=== PATIENT | male | born 1940 | race Caucasian/White ===

== ENCOUNTER 2018-09-27 05:24 | Inpatient (IN) | payer MEDICARE, BC ==
[2018-09-26 15:57] VITALS: BMI 28.7
[2018-09-27] VITALS (29 sets, daily range): BP systolic 18–133; BP diastolic 51–80; PULSE 79–97; RESP 9–94; Ht 179.1 cm; Wt 89.3 kg
[~2018-09-27] VITALS: Ht 179.1 cm; Wt 89.3 kg
--- NOTE | 2018-09-27 05:21 | HPN ---
Date/Time of Note Date/Time of Note DATE: 09/27/18 TIME: 05:21 Interval H&P Admission Note Pt. seen H&P reviewed: No system changes DELTA CONTRERAS MD September 27, 2018 05:21
--- NOTE | 2018-09-27 05:23 | OPR ---
Date/Time of Note Date/Time of Note DATE: 09/27/18 TIME: 05:21 Operative Report Procedure Date: September 27, 2018 Preoperative Diagnosis Right hip primary arthritis Postoperative Diagnosis Right hip primary arthritis Operation/Procedure Performed 1. Right total hip arthroplasty 2. Right hip injection of PRP solution Surgeon see signature line Change Director [employer] PA-C Anesthesia Type: general Estimated Blood Loss: 150 - 200 ml's Transfusion none Specimen None Grafts/Implants See operative note Complications none Pt Condition Post Procedure: stable Disposition: PACU Procedure Description [employer] PRODUCT MANAGER SURGEON:[facility] PA-C was integral to the positioning and assistance necessary in the exposure of the hip joint as well as protection of the neurovascular structures. In my opinion at the assistance offered by a surgical corsetier is insufficient and Elijahnate should be compensated for his time. PROCEDURE IN DETAIL: Following the administration of general endotracheal anesthesia supplemented with a spinal anesthetic, the patient was placed in the supine position. The antecubital fossa on the right was prepped and 60 cc of blood were aspirated. Under sterile conditions, the blood was passed off to the senior outside sales representative from the company who prepared the PRP solution. The right lower extremity was then prepped and draped in the usual sterile fashion. A pomologist radiograph was obtained for preliminary limb length and femoral size as well as acetabular size. A lateral incision was then made exposing the tensor fascia the fascia was incised the tensor was retracted laterally and the vessels were cauterized. The anterior capsule was then identified and prepared. A capsulectomy was then performed and the femoral head was then evaluated. Severe arthritic changes were noted. A femoral head cut was then made in the appropriate degree of version and inclination. Following dislocation, severe arthritic changes were noted with very certain severe cystic changes in the femoral head. The acetabulum was then exposed and a capsulectomy and labrectomy were completed. The central portion was then entered and serially reamed up to the 55 mm size. A Depuy [place] cup which was 56 mm, with a standard liner was then fit into position with solid fixation. A 30 mm screw was used for additional fixation. Attention was then directed to the femur, the femur was exposed and prepared. The canal was entered and serially reamed up to the size 5. The femoral canal was then thoroughly irrigated and the PRP solution was then instilled into the femoral canal. A size 5 Depuy [employer] standard offset stem was then inserted with solid fixation. A 32 mm, +1.5 mm femoral head, which was ceramic was then inserted. The leg was taken through full range of motion with no evident instability. In addition, radiographs revealed excellent position with reproduction of the limb lengths within a millimeter. The wound was irrigated thoroughly. The wound was then closed in layers and a Prenio for the final cover. This was watertight. Estimated blood loss was procedure was 200 cc. Postoperative radiographs will be obtained in the recovery room. DELTA CONTRERAS MD September 27, 2018 05:23
[2018-09-27] MEDS ORDERED: DEXAMETHASONE 1 MG TAB PO ONE (05:30)
[2018-09-27] MEDS ORDERED: TRANEXAMIC ACID 1GM/100ML(PMX) 100 ML IVPB ONE (05:30)
[2018-09-27] MEDS ORDERED: GABAPENTIN 300 MG CAP PO ONE (05:30)
[2018-09-27] MEDS ORDERED: CEFAZOLIN 2 GM/50 ML (PMX) 50 ML IVPB ONE (05:30)
--- NOTE | 2018-09-27 06:47 | PREAC ---
Date/Time of Note Date/Time of Note DATE: 09/27/18 TIME: 06:46 Anesthesia Eval and Record Evaluation Time Pre-Procedure Interview DATE: 09/27/18 TIME: 06:46 Age 78 Sex male NPO: 8 hrs Preoperative diagnosis right hip osteoarthritis Planned procedure right anterior total hip replacement Past Medical History Past Medical History: Includes Cardio: HTN, Dyslipidemia Surgery & Anesthesia Issues No known issue Meds Anticoagulation: No Beta Asim within 24 hr: Yes Reason Beta Asim not given: Bradycarida, Hypotension Current Medications Sodium Chloride/ Tranexamic Acid INTRA-OP ONCE IRR ; Start 09/27/18 at 07:00; Stop 09/27/18 at 07:01 Bupivacaine HCl/ Morphine Sulfate/ Epinephrine/ Ketorolac Tromethamine/ Sodium Chloride/ Vancomycin HCl/ Clonidine INTRA-OP IRR ; Start 09/27/18 at 07:00; Stop 09/27/18 at 09:30 Meds reviewed: Yes Allergies Coded Allergies: moxifloxacin (Verified Allergy, Mild, DIZZY, FAINTS, 09/26/18) Allergies Reviewed: Yes Labs/Studies Labs Reviewed: Reviewed by anesthesiologist test: N/A Pre-procedure Exam Airway: Adequate mouth opening, Adequate thyromental dist Mallampati: Mallampati II Teeth: Normal Lung: Normal Heart: Normal ASA Physical Status ASA physical status: 2 Emergency: None Planned Anesthetic General/MAC: ETT (vs. ), LMA Neuraxial: Spinal Planned Pain Management Sub-arachniod narcotics, Parenteral pain med Pre-operative Attestations Prior to commencing anesthesia and surgery, the patient was re-evaluated, there was verification of: *The patient's identity *The results of appropriate recent lab work and preoperative vital signs *The above evaluation not changing prior to induction *Anesthetic plan, risk benefits, alternative and complications discussed with patient/family; questions answered; patient/family understands, accepts and wishes to proceed. LUPE DAMON MD September 27, 2018 06:47
[2018-09-27] MEDS ORDERED: PROPOFOL 20 ML ONE (06:55)
[2018-09-27] MEDS ORDERED: LIDOCAINE 2% (SDV) 5 ML INJ ONE (06:55)
[2018-09-27] MEDS ORDERED: ATOR20TA38 PO (06:56)
[2018-09-27] MEDS ORDERED: GLUC100015 PO (06:56)
[2018-09-27] MEDS ORDERED: METO-335 PO (06:56)
[2018-09-27] MEDS ORDERED: UBID50TA PO (06:56)
[2018-09-27] MEDS ORDERED: AMLO-147 PO (06:56)
[2018-09-27] MEDS ORDERED: ASPI-903 PO (06:56)
[2018-09-27] MEDS ORDERED: IRBE150T21 PO (06:56)
[2018-09-27] MEDS ORDERED: FENTAnyl 50 MCG/ML VIAL ONE (06:58)
[2018-09-27] MEDS ORDERED: BUPIVACAINE 0.5% (SDV) 30 ML, morphine SULFATE (PF) 8 MG, EPINEPHrine 0.3 MG, KETOROLAC... IRR SCH ×7 (07:00)
[2018-09-27] MEDS ORDERED: SOD CHLORIDE 0.9% 100 ML, TRANEXAMIC ACID 3,000 MG IRR ONE ×2 (07:00)
[2018-09-27] MEDS ORDERED: SEVOFLURANE 15 MIN ONE (07:00)
[2018-09-27] MEDS ORDERED: CEFAZOLIN 1 GM INJ ONE (07:08)
[2018-09-27] MEDS ORDERED: DEXAMETHASONE 4 MG/ML 5 ML INJ ONE (07:08)
[2018-09-27] MEDS ORDERED: FAMOTIDINE 20 MG INJ ONE (07:08)
[2018-09-27] MEDS ORDERED: ONDANSETRON 4 MG INJ ONE (07:08)
[2018-09-27] MEDS ORDERED: TRANEXAMIC ACID 1GM/100ML(PMX) 100 ML ONE (07:13)
[2018-09-27] MEDS ORDERED: THROMBIN 20,000 UNIT VIAL ONE (07:13)
[2018-09-27] MEDS ORDERED: CA CHLORIDE 10% 10 ML SYRINGE ONE (07:14)
[2018-09-27] MEDS ORDERED: EPHEDrine 25 MG/5 ML SYG ONE ×2 (07:37→08:34)
[2018-09-27] MEDS ORDERED: POLYMYXIN/BACITRACIN 1L IRRIG IRR ONE (07:40)
[2018-09-27] MEDS ORDERED: NACL 0.9% 3 ML SYG IV SCH (08:30)
[2018-09-27] MEDS ORDERED: oxyCODONE 5 MG TAB PO PRN ×2 (08:30)
[2018-09-27] MEDS ORDERED: MAGNESIUM HYDROXIDE 30ML CUP PO PRN (08:30)
[2018-09-27] MEDS ORDERED: HYDROmorphONE 1 MG/ML SYG IV PRN (08:30)
[2018-09-27] MEDS ORDERED: DIPHENHYDRAMINE 50 MG INJ IV PRN ×2 (08:30→09:00)
[2018-09-27] MEDS ORDERED: ZOLPIDEM 5 MG TAB PO PRN (08:30)
[2018-09-27] MEDS ORDERED: ONDANSETRON 4 MG INJ IV PRN ×2 (08:30→09:00)
--- NOTE | 2018-09-27 08:54 | PAC ---
Date/Time of Note Date/Time of Note DATE: 09/27/18 TIME: 08:53 Post-Anesthesia Notes Post-Anesthesia Note Last documented vital signs Vital Signs Date Temp Pulse Resp B/P (MAP) Pulse Ox O2 O2 Flow FiO2 Time Delivery Rate 09/27/18 98.0 07:35 09/27/18 82 18 123/80 98 06:50 (94) Activity: WNL Respiratory function: WNL Cardiovascular function: WNL Mental status: Baseline Pain reasonably controlled: Yes Hydration appropriate: Yes Nausea/Vomiting absent: Yes Comments Bp: 129/67 HR: 68 RR: 15 T: 98 SaO2: 97% LUPE DAMON MD September 27, 2018 08:54
--- NOTE | 2018-09-27 08:55 | PDOCDIS ---
Discharge Instructions DIAGNOSIS Discharge Diagnosis Primary hip arthritis CONDITION [id number] Patient Condition: [id number] Good HOME CARE INSTRUCTIONS: [id number] Diet Instructions: [id number] Regular ACTIVITY: [id number] Activity Restrictions: [id number] Slowly Increase Activity Keep Limb Elevated [id number] Bathing Restrictions: Afzcy4m Shower FOLLOW UP/APPOINTMENTS Follow-up Plan 2 weeks in the office SCHOOL/WORK RELEASE May return to School/Work with: With Restrictions School/Work Release Comment: No hip extension for 6 weeks DELTA CONTRERAS MD September 27, 2018 08:55
[2018-09-27] MEDS ORDERED: FENTAnyl 50 MCG/ML VIAL IV PRN (09:00)
[2018-09-27] MEDS ORDERED: EPHEDrine 25 MG/5 ML SYG IV PRN (09:00)
[2018-09-27] MEDS: AMLODIPINE 10 MG TAB PO SCH (09:00)
[2018-09-27] MEDS ORDERED: MEPERIDINE 25 MG INJ IV PRN (09:00)
[2018-09-27] MEDS ORDERED: PROCHLORPERAZINE 10 MG INJ IV PRN (09:00)
[2018-09-27] MEDS ORDERED: HYDROmorphONE 1 MG/5 ML IV SYRINGE IV PRN ×3 (09:00)
[2018-09-27] MEDS: LACTATED RINGER'S 1,000 ML IV SCH ×3 (09:10→23:46)
[2018-09-27] MEDS: CEFAZOLIN 1 GM/50 ML (PMX) 50 ML IVPB SCH ×3 (09:11→23:45)
[2018-09-27] MEDS: METOPROLOL (XL) 25 MG TAB PO SCH (11:01)
[2018-09-27] MEDS: ACETAMINOPHEN 1000MG/100ML IV 100 ML IVPB SCH ×3 (11:02→23:45)
[2018-09-27] MEDS: DEXAMETHASONE 2 MG TAB PO SCH ×3 (12:57→23:46)
[2018-09-27] MEDS: oxyCODONE 5 MG TAB PO PRN (13:03)
[2018-09-27] MEDS: SENNA/DOCUSATE NA (8.6MG/50MG) TAB PO SCH (20:33)
[2018-09-27] MEDS ORDERED: ATORVASTATIN 20 MG TAB PO SCH (21:00)
[2018-09-27] MEDS ORDERED: GABAPENTIN 300 MG CAP PO SCH (21:00)
[2018-09-28 01:44] VITALS: BP 99/57; PULSE 79; RESP 18
[2018-09-28] MEDS: LACTATED RINGER'S 1,000 ML IV SCH (04:27)
[2018-09-28] MEDS: DEXAMETHASONE 2 MG TAB PO SCH (05:10)
--- NOTE | 2018-09-28 05:48 | PN ---
Date/Time of Note Date/Time of Note DATE: 09/28/18 TIME: 05:48 Subjective Awake and alert with minimal complaints Objective Vitals Vital Signs Date Temp Pulse Resp B/P (MAP) Pulse Ox O2 O2 Flow FiO2 Time Delivery Rate 09/28/18 97.9 79 18 99/57 (71) 95 Nasal 01:44 Cannula 09/27/18 2.0 11:30 Intake and Output 09/27/18 09/27/18 09/28/18 1515:00 23:00 07:00 IntakeIntake Total 2100 ml 1000 ml 750 ml OutputOutput Total 300 ml 900 ml BalanceBalance 1800 ml 1000 ml -150 ml Wound clean and dry. Neurologically intact. No signs of DVT. Results Result Diagram: 09/27/18 09 Medications Medications Current Medications Amlodipine Besylate (Norvasc) 10 mg DAILY PO ; Start 09/27/18 at 09:00 Atorvastatin Calcium (Lipitor) 20 mg QHS PO Last administered on 09/27/18at 20:32; Admin Dose 20 MG; Start 09/27/18 at 21:00 Metoprolol Succinate (Toprol Xl) 25 mg DAILY PO ; Start 09/27/18 at 09:00 Losartan Potassium (Cozaar) 50 mg DAILY PO ; Start 09/28/18 at 09:00 Lactated Ringer's 1,000 ml @ 100 mls/hr Q10H IV Last administered on 09/27/18at 23:46; Admin Dose 100 MLS/HR; Start 09/27/18 at 08:27 Senna/Docusate Sodium (Senokot-S) 1 tab BID PO Last administered on 09/27/18at 20:33; Admin Dose 1 TAB; Start 09/27/18 at 21:00 Simethicone (Mylicon) 80 mg TID PRN PO .GAS; Start 09/27/18 at 08:30 Magnesium Hydroxide (Milk Of Mag) 30 ml BID PRN PO .CONSTIPATION; Start 09/27/18 at 08:30 Magnesium Hydroxide (Milk Of Mag) 30 ml HS PO ; Start 09/29/18 at 21:00 Dexamethasone (Decadron) 2 mg Q6 PO Last administered on 09/28/18at 05:10; Admin Dose 2 MG; Start 09/27/18 at 12:00; Stop 09/28/18 at 06:01 Gabapentin (Neurontin) 300 mg HS PO Last administered on 09/27/18at 20:33; Admin Dose 300 MG; Start 09/27/18 at 21:00 Oxycodone HCl (Roxicodone) 15 mg Q4H PRN PO .PAIN; Start 09/27/18 at 08:30 Oxycodone HCl (Roxicodone) 10 mg Q4H PRN PO .PAIN; Start 09/27/18 at 08:30 Oxycodone HCl (Roxicodone) 5 mg Q4H PRN PO .PAIN Last administered on 09/27/18at 13:03; Admin Dose 5 MG; Start 09/27/18 at 08:30 Hydromorphone HCl (Dilaudid) 1 mg Q4H PRN IV .BREAKTHROUGH PAIN; Start 09/27/18 at 08:30 Ondansetron HCl (Zofran Inj) 4 mg Q6H PRN IV NAUSEA/VOMITING; Start 09/27/18 at 08:30 Diphenhydramine HCl (Benadryl) 25 mg Q6H PRN IV .PRURITUS; Start 09/27/18 at 08:30 Zolpidem Tartrate (Ambien) 10 mg HS PRN PO .INSOMNIA; Start 09/27/18 at 08:30 IV Flush (NS 3 ml) 3 ml per protocol IV ; Start 09/27/18 at 08:30 Aspirin (Ecotrin) 325 mg DAILY PO ; Start 09/28/18 at 09:00 VTE Prophylaxis Risk score (from Nsg)>0 risk: 6 SCD applied (from Nsg): Yes Lines/Catheters IV Catheter Type: Saline Lock Barrett in Place: No Assessment/Plan Assessment/Plan Assessment: Status post total hip replacement Plan: Begin PT this morning discharge after clearance DELTA CONTRERAS MD September 28, 2018 05:48
--- NOTE | 2018-09-28 05:49 | DS ---
Date/Time of Note Date/Time of Note DATE: 09/28/18 TIME: 05:48 Discharge Summary Admission/Discharge Info Admit Date/Time September 27, 2018 at 05:24 Discharge Date/Time 09/28/2018 Discharge Diagnosis Primary hip arthritis Patient Condition: Good Hospital Course Admitted and underwent uncomplicated procedure. Postop day 1 afebrile independently ambulatory discharged home Home Meds Reported Medications Glucosamine Sulfate 2KCL (GLUCOSAMINE) 1,000 Mg Tablet, 1500 MG PO DAILY, TAB 09/27/18 Aspirin* (Aspirin* Chew) 81 Mg Tab.chew, 81 MG PO DAILY, TAB.CHEW 09/27/18 Ubidecarenone (COQ10) 50 Mg Tab.chew, 100 MG PO DAILY, TAB.CHEW 09/27/18 Irbesartan* (Irbesartan*) 150 Mg Tablet, 150 MG PO DAILY, TAB 09/27/18 Atorvastatin Calcium* (Atorvastatin Calcium*) 20 Mg Tablet, 20 MG PO QHS, #30 TAB 09/27/18 Metoprolol Succinate* (Toprol XL*) 25 Mg Tab.sr.24h, 25 MG PO DAILY, #30 TAB 09/27/18 Amlodipine Besylate* (Amlodipine Besylate*) 10 Mg Tablet, 10 MG PO DAILY, #30 TAB 09/27/18 Follow-up Plan 2 weeks in the office Primary Care Provider Not On Staff Doctor Pending Labs Laboratory Tests Test 09/27/18 09:12 09/28/18 04:53 White Blood Count 10.8 10^3/ul (4.8-10.8) Pending Red Blood Count 4.29 10^6/ul (4.70-6.10) Pending Hemoglobin 13.4 g/dl (14.0-18.0) Pending Hematocrit 40.4 % (42.0-52.0) Pending Mean Corpuscular Volume 94.2 fl (82.0-101.0) Pending Mean Corpuscular Hemoglobin 31.2 pg (29.0-33.0) Pending Mean Corpuscular Hemoglobin Concent 33.2 g/dl (32.0-37.0) Pending Red Cell Distribution Width 12.3 % (11.5-14.5) Pending Platelet Count 208 10^3/UL (140-415) Pending Mean Platelet Volume 9.2 fl (7.4-10.4) Pending Immature Granulocytes % 1.000 % (0.001-0.429) Neutrophils % 81.2 % (39.0-77.0) Lymphocytes % 12.4 % (15.0-51.0) Monocytes % 3.1 % (0.0-11.0) Eosinophils % 1.7 % (0.0-7.0) Basophils % 0.6 % (0.0-2.0) Nucleated Red Blood Cells % 0.0 /100WBC (0.0-0.0) Immature Granulocytes # 0.110 10^3/ul (0.0-0.031) Neutrophils # 8.8 10^3/ul (1.6-7.5) Lymphocytes # 1.3 10^3/ul (0.8-2.9) Monocytes # 0.3 10^3/ul (0.3-0.9) Eosinophils # 0.2 10^3/ul (0.0-0.5) Basophils # 0.1 10^3/ul (0.0-0.1) Nucleated Red Blood Cells # 0.0 10^3/ul (0.0-0.0) DELTA CONTRERAS MD September 28, 2018 05:49
[2018-09-28 07:33] VITALS: BP 125/61; PULSE 82; RESP 18
[2018-09-28] MEDS ORDERED: LOSARTAN 50 MG TAB PO SCH (09:00)
[2018-09-28] MEDS ORDERED: ASPIRIN (EC) 325 MG TAB PO SCH (09:00)
[2018-09-28] MEDS: METOPROLOL (XL) 25 MG TAB PO SCH (09:28)
[2018-09-28] MEDS: AMLODIPINE 10 MG TAB PO SCH (09:29)
[2018-09-28] MEDS: oxyCODONE 5 MG TAB PO PRN (09:30)
[2018-09-28] MEDS: SENNA/DOCUSATE NA (8.6MG/50MG) TAB PO SCH (09:30)
[2018-09-29] MEDS ORDERED: MAGNESIUM HYDROXIDE 30ML CUP PO SCH (21:00)
== END 2018-09-28 10:52 | disposition home or self-care (01) | DRG 470 ==
LOC: REC 05:24 → MS1 09:49
PROVIDERS: ADMIT Orthopaedic Surgery; ATTEND Orthopaedic Surgery
PROC: 0SR904Z Replacement of Right Hip Joint with Ceramic on Polyethylene Synthetic Substitute, Open Approach (ICD-10-PCS; principal; 2018-09-27 07:00)
DX: M16.11 Unilateral primary osteoarthritis, right hip (principal); I10 Essential (primary) hypertension; E78.5 Hyperlipidemia, unspecified
CPT/HCPCS: 72170; 73530; 85025; 86999; 87086; 88304; 88311; 97161; C1713; C1776; J0131; J0171; J0690; J0735; J1100; J1885; J2274; J2405; J3010; J3370; J7120